=== PATIENT | male | born 1955 | race Caucasian/White ===

== ENCOUNTER 2020-12-15 12:52 | Outpatient (REF) | payer MEDICARE, SELFPAY ==
--- NOTE | ~2020-12-15 | CT_ITS ---
EXAMINATION: CT SINUS WITHOUT CONTRAST CLINICAL INFORMATION: Sinonasal polyps. Headaches. COMPARISON: CT sinus scan 10/19/2012 TECHNIQUE: Axial 2 mm thin and reformatted 2 mm thin sagittal and coronal images of sinuses were obtained. This CT examination was performed using dose optimization techniques as appropriate, variously including the following: *Automated exposure control *Adjustment of mA and/or kV according to patient size (this includes techniques or standardized protocols for targeted exams where dose is matched to indication/reason for exam; i.e. extremities or head) *Use of iterative reconstruction technique DLP: 168 mGy-cm FINDINGS: FRONTAL SINUSES AND DRAINAGE PATHWAYS:. There is complete opacification of right maxillary and moderate mucoperiosteal thickening of left maxillary sinus. There is complete obstruction of right frontoethmoidal recess from mucoperiosteal thickening. Near-complete obstruction of left frontoethmoidal recess is noted. MAXILLARY SINUSES AND DRAINAGE PATHWAYS: There is complete opacification of right maxillary sinus and moderate mucoperiosteal thickening of left maxillary sinus. Patient is status post functional endoscopic sinus surgery. Bilateral maxillary sinus drainage pathway is partially obstructed from mucoperiosteal thickening. ETHMOID SINUSES: The ethmoid sinuses are completely opacified with some aeration. The ethmoid roofs are symmetric, with olfactory fossa depth of 0.3 on the right and 0.3 on the left. SPHENOID SINUSES AND DRAINAGE PATHWAYS: The sphenoid sinuses are patent with minimal mucosal thickening right sphenoid sinus. The sphenoid ostia are patent. The carotid canals are covered by bone. NASAL CAVITY/NASOPHARYNX: There is soft tissue density seen within the nasal cavity, likely nasal polyposis. The right middle turbinate has been surgically resected, however, there is a [id number] polyp with a large stalk extending from the right lateral nasal wall inferiorly medial to the inferior turbinate. The nasopharyngeal and nasal cavity airway is widely patent. There is thickening of bilateral maxillary bony sinus bueno suggestive of chronic changes. ADDITIONAL RELEVANT FINDINGS: No periapical disease is seen. There is bilateral loss of TM joint space slightly more prominent on the right side with periarticular spurring. The orbits and skull base soft tissues are unremarkable. The middle ear cavities and mastoid air cells are clear. Limited evaluation demonstrates no acute intracranial findings. CT/CT sinus wo con IMPRESSION: Bilateral [id number] sinonasal polyposis. There is evidence of previous functional endoscopic sinus surgery. The right maxillary sinus drainage is completely obstructed. There is partial obstruction of bilateral frontoethmoidal and left maxillary sinus drainage pathways. There is chronic thickening of bony maxillary sinus wall secondary to chronic changes. There is minimal mucosal thickening right sphenoid sinus. The sphenoidal drainage pathway appears patent. Mild mucoperiosteal thickening bilateral ethmoid sinuses.
== END 2020-12-15 12:53 | disposition home or self-care (01) ==
LOC: HO.CT 12:52
PROVIDERS: PCP Internal Medicine; Visit Provider Otolaryngology
DX: J33.8 Other polyp of sinus (principal); R51.9 Headache, unspecified
CPT/HCPCS: 70486